=== PATIENT | female | born 1970 | race Caucasian/White ===

== ENCOUNTER 2019-01-16 10:10 | Emergency (ER) | payer OTHER ==
[~2019-01-16] VITALS: Ht 162.6 cm; Wt 170.1 kg
[2019-01-16 10:33] VITALS: Ht 162.6 cm; Wt 170.1 kg
[2019-01-16 13:43] VITALS: BP 174/111
== END 2019-01-16 13:44 | disposition home or self-care (01) ==
LOC: ED 10:10
DX: S61.250A Open bite of right index finger without damage to nail, initial encounter (principal); M79.661 Pain in right lower leg; W54.0XXA Bitten by dog, initial encounter; Y93.89 Activity, other specified; Y92.89 Other specified places as the place of occurrence of the external cause; Y99.8 Other external cause status
CPT/HCPCS: 90715; Q0092